=== PATIENT | male | born 1950 | race Two or more races ===

== ENCOUNTER 2020-10-22 14:48 | Emergency (ER) | payer OTHER ==
[~2020-10-22] VITALS: Ht 180.3 cm; Wt 81.6 kg
[2020-10-22 16:19] LABS: Basophils # (auto) 0 10 ^3/uL (0-0.2); Basophils % (auto) 0.8 % (0.0-2.0); Eosinophils # (auto) 0.1 10 ^3/uL (0-0.8); Hemoglobin 16.3 g/dL (13.5-17.5); Lymphocytes # (auto) 0.9 10 ^3/uL (0.4-5.4); Monocytes # (auto) 0.4 10 ^3/uL (0-1.3)
[2020-10-22 16:28] LABS: Eosinophils % (auto) 2.3 % (0.0-7.0); Hematocrit 45.2 % (41.0-53.0); Lymphocytes % (auto) 26.2 % (10.0-50.0); Mean Corpuscular Hemoglobin 33.6 pg (28.0-32.0); Mean Corpuscular Hgb Conc. 36.1 g/dL (32.0-36.0); Monocytes % (auto) 10.1 % (0.0-12.0); Neutrophils # (auto) 2.2 10 ^3/uL (1.6-8.6); Neutrophils % (auto) 60.6 % (37.0-80.0); Platelet Count (auto) 114 10^3/uL (140-450); Red Blood Cells 4.86 10^6/uL (4.5-5.90); White Blood Cell 3.6 10^3/uL (4.4-10.8)
[2020-10-22 16:31] LABS: Anion Gap 5 (5-15); Blood Urea Nitrogen 7 mg/dL (7-18); Calcium 8.8 mg/dL (8.5-10.1); Carbon Dioxide 26 mmol/L (21-32); Chloride 106 mmol/L (98-107); Glucose 92 mg/dL (74-106); Potassium 3.6 mmol/L (3.5-5.1); Sodium 137 mmol/L (136-145)
[2020-10-22 16:34] LABS: Alanine Aminotransferase 113 U/L (16-61); Aspartate Aminotransferase 61 U/L (15-37); BUN/Creatinine Ratio 9.3; GFR African American 132 mL/min; GFR Non-African American 109 mL/min
[2020-10-22 16:51] LABS: Albumin 3.9 g/dL (3.4-5.0); Alkaline Phosphatase 96 U/L (45-117); Bilirubin, Total 0.7 mg/dL (0.2-1.0); Total Protein 8.9 g/dL (6.4-8.2)
[2020-10-22 18:30] VITALS: BP 120/66
== END 2020-10-22 23:05 | disposition left against medical advice (07) ==
LOC: ER 14:48
DX: R00.2 Palpitations (principal); I10 Essential (primary) hypertension
CPT/HCPCS: 36415; 80053; 84484; 85025; 93005